=== PATIENT | female | born 2000 | race Caucasian/White ===

== ENCOUNTER 2018-01-06 17:10 | Emergency (ER) | payer OTHER ==
[2018-01-06] MEDS ORDERED: NS 1,000 ML IV ONE (17:45)
[2018-01-06] MEDS ORDERED: IBUPROFEN 600 MG TAB PO ONE (17:46)
--- NOTE | 2018-01-06 17:49 | EDPHY ---
H & P Time Seen by Provider: 01/06/18 17:20 HPI/ROS: Chief complaint. Seizure HPI. Patient is a 17-year-old female with 1st onset seizure in October of 2014. She had been on Keppra and Lamictal for 2 years prescribed by [facility]. She has been off medication for about 1 year. She says she had a petite mal seizure last week though did bite her tongue. Today in her apartment she had a seizure that she also describes of petite mal. She was talking to a counselor in the afternoon and then had a generalized tonic-clonic seizure followed by postictal confusion. She did bite her tongue. She had abrasions to her face. She does not continue to see a neurologist. Last week was her 1st seizure after being off medications. She states no reason for seizure today though increased stress but otherwise not sick. ROS 10 systems were reviewed and negative with the exception of the elements mentioned in the history of present illness Past Medical/Surgical History: Seizure disorder, attention deficit hyperactivity disorder Social History: Single, nonsmoker, no alcohol Smoking Status: Never smoked Physical Exam: General Appearance: Alert well-developed female mild distress vital signs are stable Eyes: Pupils equal and round no pallor or injection. ENT, no hemotympanum or Morton sign. Bitten tongue on the right tongue. Abrasions to nose and forehead. No septal hematoma Respiratory: There are no retractions, lungs are clear to auscultation. Cardiovascular: Regular rate and rhythm. Gastrointestinal: Abdomen is soft and nontender, no masses, bowel sounds normal. Neurological: Awake and alert, sensory and motor exams grossly normal. Skin: Warm and dry, no rashes. Musculoskeletal: Neck is supple nontender. Extremities symmetrical, full range of motion. Psychiatric: Patient is oriented X 3, there is no agitation. Constitutional: Initial Vital Signs Temperature (C) 36.4 C 01/06/18 17:15 Heart Rate 75 01/06/18 17:15 Respiratory Rate 16 01/06/18 17:15 Blood Pressure 103/61 01/06/18 17:15 O2 Sat (%) 97 01/06/18 17:15 O2 Delivery Mode Room Air Allergies/Adverse Reactions: No Known Allergies Allergy (Verified 01/06/18 17:13) Home Medications: Medication Instructions Recorded levETIRAcetam [Keppra 500 mg (*)] 500 mg PO BID #30 tab 01/06/18 Medical Decision Making - Diagnostics Imaging Results: Declines head CT Procedures: IV normal saline, seizure precaution Ibuprofen for achiness and headache On re-evaluation at 7:25 p.m. Patient's headache is improved but she asked for some more ibuprofen. She is given a 1000 mg of Tylenol orally. Patient is given Keppra 500 mg orally. ED Course/Re-evaluation: I consulted discussed case with Dr. Lisa Duran for Neurology who agrees with treatment plan and recommends Keppra 500 mg twice daily and then follow up in the office. I have discussed laboratory evaluation with the patient and her father. We discussed treatment plan including criteria for return and importance of follow- up and further evaluation. We also discussed no driving or other dangerous activity until cleared by Neurology. They expressed understanding and agreement Differential Diagnosis: Patient has a for seizure in 2014. She was on anticonvulsants for 2 years and then off for a year. She had her last seizure last week and then 2 seizures today. She is currently awake and neurologically intact. - Data Points Laboratory Results: Laboratory Results 01/06/18 18:06 01/06/18 18:06 01/06/18 01/06/18 01/06/18 18:41 18:06 18:06 WBC RBC Hgb Hct MCV MCH MCHC RDW Plt Count MPV Neut % (Auto) Lymph % (Auto) Gooding % (Auto) Eos % (Auto) Baso % (Auto) Nucleat RBC Rel Count Absolute Neuts (auto) Absolute Lymphs (auto) Absolute Monos (auto) Absolute Eos (auto) Absolute Basos (auto) Absolute Nucleated RBC Immature Gran % Immature Gran # Sodium 139 mEq/L mEq/L (135-145) Potassium 4.0 mEq/L mEq/L (3.3-5.0) Chloride 103 mEq/L mEq/L (97-110) Carbon Dioxide 27 mEq/l mEq/l (22-31) Anion Gap 9 mEq/L mEq/L (6-14) BUN 8 mg/dL mg/dL (7-23) Creatinine 0.7 mg/dL mg/dL (0.6-1.0) Estimated GFR > 60 Glucose 84 mg/dL mg/dL (70-100) Calcium 9.9 mg/dL mg/dL (8.5-10.4) Beta HCG, Qual NEGATIVE Urine Opiates Screen NEGATIVE (NEGATIVE) Urine Barbiturates NEGATIVE (NEGATIVE) Ur Phencyclidine Scrn NEGATIVE (NEGATIVE) Ur Amphetamine Screen NEGATIVE (NEGATIVE) U Benzodiazepines Scrn NEGATIVE (NEGATIVE) Urine Cocaine Screen NEGATIVE (NEGATIVE) U Marijuana (THC) Screen NON-NEGATIVE H (NEGATIVE) 01/06/18 18:06 WBC 5.42 10^3/uL 10^3/uL (3.80-9.50) RBC 4.19 10^6/uL 10^6/uL (4.18-5.33) Hgb 13.4 g/dL g/dL (12.6-16.3) Hct 39.0 % % (38.0-47.0) MCV 93.1 fL fL (81.5-99.8) MCH 32.0 pg pg (27.9-34.1) MCHC 34.4 g/dL g/dL (32.4-36.7) RDW 12.5 % % (11.5-15.2) Plt Count 211 10^3/uL 10^3/uL (150-400) MPV 10.6 fL fL (8.7-11.7) Neut % (Auto) 66.9 % % (39.3-74.2) Lymph % (Auto) 19.7 % % (15.0-45.0) Gooding % (Auto) 12.2 % % (4.5-13.0) Eos % (Auto) 0.6 % % (0.6-7.6) Baso % (Auto) 0.4 % % (0.3-1.7) Nucleat RBC Rel Count 0.0 % % (0.0-0.2) Absolute Neuts (auto) 3.63 10^3/uL 10^3/uL (1.70-6.50) Absolute Lymphs (auto) 1.07 10^3/uL 10^3/uL (1.00-3.00) Absolute Monos (auto) 0.66 10^3/uL 10^3/uL (0.30-0.80) Absolute Eos (auto) 0.03 10^3/uL 10^3/uL (0.03-0.40) Absolute Basos (auto) 0.02 10^3/uL 10^3/uL (0.02-0.10) Absolute Nucleated RBC 0.00 10^3/uL 10^3/uL (0-0.01) Immature Gran % 0.2 % % (0.0-1.1) Immature Gran # 0.01 10^3/uL 10^3/uL (0.00-0.10) Sodium Potassium Chloride Carbon Dioxide Anion Gap BUN Creatinine Estimated GFR Glucose Calcium Beta HCG, Qual Urine Opiates Screen Urine Barbiturates Ur Phencyclidine Scrn Ur Amphetamine Screen U Benzodiazepines Scrn Urine Cocaine Screen U Marijuana (THC) Screen Medications Given: Discontinued Medications Sodium Chloride (Ns) 1,000 mls @ 0 mls/hr IV EDNOW ONE; Wide Open PRN Reason: Protocol Stop: 01/06/18 17:46 Last Admin: 01/06/18 18:07 Dose: 1,000 mls Ibuprofen (Motrin) 600 mg PO EDNOW ONE Stop: 01/06/18 17:47 Last Admin: 01/06/18 18:01 Dose: 600 mg Departure - Departure Disposition: Home, Routine, Self-Care Clinical Impression: Seizure disorder Condition: Good Instructions: Recurrent Seizures in Adults (ED) Additional Instructions: Take Keppra 1 pill twice daily for seizure control. No driving or other dangerous activity until cleared by Neurology. Call tomorrow to schedule appointment Return for further seizures Referrals: Holli Acuna MD [Primary Care Provider] - As per Instructions Sixto Whiteside DO [Doctor of Osteopathy] - 2-3 days, call for appt. Prescriptions: levETIRAcetam [Keppra 500 mg (*)] 500 mg PO BID #30 tab
[2018-01-06 18:34] LABS: PLATELET COUNT 211 10^3/uL (150-400)
[2018-01-06 18:54] VITALS: BP 110/74
[2018-01-06] MEDS ORDERED: ACETAMINOPHEN 500 MG TAB PO ONE (19:22)
[2018-01-06] MEDS ORDERED: levETIRAcetam 500 MG TAB PO ONE ×2 (19:28→19:49)
[2018-01-06] MEDS ORDERED: levETIRAcetam 500 MG TAB ONE (19:47)
== END 2018-01-06 20:00 | disposition home or self-care (01) ==
DX: G40.909 Epilepsy, unspecified, not intractable, without status epilepticus (principal); E86.9 Volume depletion, unspecified
CPT/HCPCS: 80305

== ENCOUNTER → 2018-03-10 | Outpatient (CLI) | payer OTHER ==
--- NOTE | 2018-03-10 16:00 | CPEEG ---
4-HOUR EEG DATE OF STUDY: 03/10/2018 INTERPRETATION: This 4-hour video EEG recording was normal. There were no potentially epileptogenic abnormalities present during the awake or sleep recordings. During the video EEG monitoring session , the patient did not have any clinical events. REPORT: This 4-hour video EEG contains 10 Hz alpha activity to the posterior head regions. There wa s no abnormal activation at rest, during photic stimulation or hyperventilation. The patient became drowsy and fell into sustained sleep during the recording. There was no abnormal activation during d rowsiness, sleep, or during times of arousal. The patient did not have any clinical events during e video EEG monitoring session. /[id number]
== END ==
LOC: FCPNEURO 08:00
PROVIDERS: ATTEND Psychiatry & Neurology Neurology
DX: G40.109 Localization-related (focal) (partial) symptomatic epilepsy and epileptic syndromes with simple partial seizures, not intractable, without status epilepticus (principal); Q04.8 Other specified congenital malformations of brain